=== PATIENT | male | born 1995 | race Caucasian/White ===

== ENCOUNTER 2019-03-17 07:54 | Emergency (ER) | payer BC ==
[~2019-03-17] VITALS: Ht 175.3 cm; Wt 90.7 kg
[2019-03-17] MEDS ORDERED: TEGRETOL200 MG (08:03)
[2019-03-17] MEDS ORDERED: PROZAC20 MG PO (08:04)
== END 2019-03-17 13:48 | disposition home or self-care (01) ==
LOC: ER 07:54
DX: K80.80 Other cholelithiasis without obstruction (principal); R10.84 Generalized abdominal pain